=== PATIENT | male | born 1930 | race Caucasian/White ===

== ENCOUNTER 2016-06-22 08:58 | Emergency (ER) | payer OTHER ==
[2016-06-22] MEDS ORDERED: SILVER NITRATE APPLICATOR ONE (09:03)
[2016-06-22 09:06] VITALS: BP 120/71
--- NOTE | 2016-06-22 09:26 | PROVIDER DOCUMENTATION ---
HPI-Rash/Wound/ReCheck - General Source: patient - History of Present Illness-Dermatology Location: reports: lower extremity (L inner foot) Quality: reports: none Severity: reports: mild Onset/Duration: reports: just prior to arrival Timing: reports: still present Context/Associated Symptoms: reports: other (busted blood vessel). denies: insect bite/sting, tick bite, spider bite, unknown bite/sting, abscess, laceration, abrasion, bruising/hematoma, incised wound, stab wound, burn, blisters, change in skin texture, edema, fever, flushing, headache, hives, jaundice, lesion, malaise, nasal congestion, numbness, pallor, paresthesia, petechiae, rash, sore throat, swelling/mass/lumps, tingling, tender area Identifiable cause?: No Exposure: reports: unknown cause Locality of Occurance: Home Similar Symptoms Previously?: No Recently seen or treated by another doctor?: No <Gladys Gabriel - Last Filed: 06/22/16 09:21> <Loc Ohara - Last Filed: 06/22/16 12:05> - General Chief Complaint: Laceration[s] Stated Complaint: bleeding Time Seen by Provider: 06/22/16 09:16 Allergies/Adverse Reactions: Allergies Allergy/AdvReac Type Severity Reaction Status Date / Time Sulfa (Sulfonamide Allergy RASH Verified 05/11/13 16:19 Antibiotics) Home Medications: Home Medication List Medication Instructions Recorded Confirmed Last Taken Type Carvedilol [Coreg] 3.125 mg PO BID 05/11/13 05/11/13 05/11/13 07:00 History Furosemide [Lasix] 40 mg PO DAILY 05/11/13 05/11/13 05/11/13 07:00 History Glimepiride 0.5 mg PO DAILY 05/11/13 05/11/13 05/11/13 07:00 History Potassium Chloride [Klor-Con M10] 20 meq PO DAILY 05/11/13 05/11/13 05/11/13 07: 00 History SIMVAstatin [Zocor] 40 mg PO QHS 05/11/13 05/11/13 05/10/13 20:00 History Magnesium Oxide [Magnesium] 250 mg PO DAILY 05/12/13 05/12/13 Unknown History Omeprazole [Prilosec] 40 mg PO DAILY@0700 #0 capsule 05/12/13 Unknown Rx Spironolactone 25 mg PO DAILY 05/12/13 05/12/13 Unknown History Warfarin [Coumadin] 5 mg PO QHS #0 05/12/13 05/11/13 05/10/14 20:00 Rx - History of Present Illness-Dermatology Nature of Presenting Problem: Pt is 85 y/o M presents to the ED via EMS with wound to L inner foot. Pt states was in the shower and his foot started bleeding. Pt denies injury or trauma. Pt states he is on blood thinners. (Gladys Gabriel) Review of Systems - Adult - REVIEW OF SYSTEMS - ADULT Constitutional: denies: chills, fever Eyes: denies: blurred vision, double vision Ears, Nose, Mouth & Throat: denies: ear pain, nose pain, throat pain Cardiovascular: denies: chest pain, heart murmur, irregular heart rate Respiratory: denies: cough, shortness of breath, wheezing Gastrointestinal: denies: abdominal pain, diarrhea, nausea, vomiting Genitourinary: denies: dysuria, hematuria Musculoskeletal: denies: bone pain, joint pain, neck pain Integumentary: reports: other (busted blood vessel). denies: hives, itching Neurological: denies: dizziness/vertigo, headache/migraines Psychiatric: reports: no symptoms reported Endocrine: reports: no symptoms reported Hematologic/Lymphatic: reports: no symptoms reported Allergic/Immunologic: reports: no symptoms reported All Other Systems: Reviewed and Negative <Gladys Gabriel - Last Filed: 06/22/16 09:21> Past History - Adult - PAST MEDICAL HISTORY-ADULT Review of Records: reports: Nursing Assessment Review, Medications Reviewed, Social history reviewed & non-contributory. Major Childhood Illnesses: reports: denies history Cardiovascular: reports: CHF, HTN Respiratory: reports: denies history Gastrointestinal: reports: denies history Obstetrical/Gynecological: reports: denies history Genitourinary: reports: kidney disease Musculoskeletal: reports: denies history Neurological: reports: denies history Endocrine/Immune: reports: Diabetes Other Conditions: reports: denies history - PRIOR SURGERIES/PROCEDURES Surgical/Procedure History: reports: pacemaker, hernia repair, joint replacement - IMMUNIZATION STATUS Childhood Immunizations: See Nurse Assessment Flu Vaccine: See Nurse Assessment - FAMILY HISTORY Family History: reviewed, not pertinent - SOCIAL HISTORY Smoking: denies Substance Use: denies Living Situation: family <Gladys Gabriel - Last Filed: 06/22/16 09:21> Physical Exam-General - PHYSICAL EXAM-ADULT Initial Vital Signs Reviewed: Yes - CONSTITUTIONAL General Appearance: appears well, alert, no apparent distress - EYES Eyes: PERRL/EOMI, pink conjunctivae, fundi clear, no AV nicking - HEAD, EARS, NOSE, MOUTH & THROAT HENMT: normocephalic/atraumatic, moist mucous membranes, normal ENT inspection, TMs normal, pharynx normal - NECK Neck: non-tender, full range of motion, supple, normal inspection - RESPIRATORY Respiratory: chest non-tender, lungs clear, normal breath sounds, no pleuratic chest pain, no respiratory distress, no accessory muscle use - CARDIOVASCULAR Cardiovascular: normal peripheral pulses, regular rate, rhythm, no edema, no gallop, no JVD, no murmur - GASTROINTESTINAL (ABDOMEN) Abdominal Exam: normal bowel sounds, non tender, soft, no organomegaly, no pulsatile mass - LYMPHATIC Lymphatic: no adenopathy - MUSCULOSKELETAL Back Exam: normal inspection, no CVA tenderness, no vertebral tenderness Extremity: normal range of motion, non-tender, normal gait, normal inspection, no pedal edema, no calf tenderness, normal capillary refill - SKIN Integumentary: normal color, normal turgor, warm/dry, other (busted blood vessel to L inner foot) - NEUROLOGIC Neurologic: grossly normal - PSYCHIATRIC Psych/Mental Status: normal mood/affect, oriented x 3 <Gladys Gabriel - Last Filed: 06/22/16 09:21> Progress <Gladys Gabriel - Last Filed: 06/22/16 09:21> <Loc Ohara - Last Filed: 06/22/16 12:05> - PLAN OF CARE/RESULTS Progress/Plan/Lab Results: Orders Category Date Time Status Silver Nitrate Applicator Med 06/22/16 09:03 Discontinued 1 each .ROUTE .STK-MED ONE Vital Signs - 24 hr 06/22/16 08:59 Pulse Rate 80 Respiratory 20 Rate Blood Pressure 120/71 O2 Sat by Pulse 90 L Oximetry (Gladys Gabriel) Departure <Gladys Gabriel - Last Filed: 06/22/16 09:21> - Departure Time of Disposition Order: 11:59 Certified Medical Emergency: Emergent <Loc Ohara - Last Filed: 06/22/16 12:05> - Departure DIAGNOSIS: 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 <Gladys Gabriel - Last Filed: 06/22/16 09:21> Physician Attestation
== END 2016-06-22 12:30 | disposition home or self-care (01) ==
LOC: P.ED 08:58
DX: I83.92 Asymptomatic varicose veins of left lower extremity (principal); I50.9 Heart failure, unspecified; I10 Essential (primary) hypertension; E11.9 Type 2 diabetes mellitus without complications; Z79.01 Long term (current) use of anticoagulants; Z79.899 Other long term (current) drug therapy; Z95.0 Presence of cardiac pacemaker; Z96.60 Presence of unspecified orthopedic joint implant
CPT/HCPCS: 99282

== ENCOUNTER 2016-11-03 19:02 | Inpatient (IN) ==
[2016-11-03 19:54] LABS: MANUAL DIFF NEEDED? NO
[2016-11-03 19:57] LABS: BASO% 0.3 % (0.0-0.8); EOS% 2.7 % (0.0-10.0); HEMATOCRIT 31.5 % (42.0-52.0); HEMOGLOBIN 10.1 g/dL (14.0-18.0); LYMPH# 1.13 X1000 (1.2-3.4); LYMPH% 15.1 % (20.5-51.1); MCH 31.5 PG (27-31); MCHC 32.1 g/dL (33-37); MCV 98.1 FL (81-99); MONO# 0.88 X1000 (0.11-0.59); MONO% 11.8 % (1.7-9.3); MPV 11.9 FL (7.4-10.4); NEUT% 70.1 % (42.2-75.2); PLT 120 X1000 (130-400); RBC 3.21 XMIL (4.7-6.1)
[2016-11-03 20:23] LABS: ALBUMIN 4.2 g/dL (3.5-5.0); CALCIUM 9.8 mg/dL (8.8-10.2); POTASSIUM 4.2 mmol/L (3.5-5.1); TOTAL BILIRUBIN 0.61 mg/dL (0.20-1.00); TOTAL PROTEIN 7.7 g/dL (6.3-8.3)
--- NOTE | 2016-11-03 21:23 | Diag Imaging Result Doc PS360 ---
CHEST-PORTABLE - 11/03/2016 INDICATION: chf TECHNIQUE: COMPARISON: 04/22/2016 FINDINGS: Stable left-sided pacemaker. There is cardiomegaly. Stable moderate right basilar pleural effusion with adjacent atelectasis. Pulmonary vascularity is somewhat distended. No other infiltrates or edema. IMPRESSION: 1. Cardiomegaly with pulmonary vascular congestion. 2. Moderate right basilar pleural effusion with adjacent atelectasis. Electronically signed by Jayme Lynch 11/03/2016 9:21 PM
[2016-11-03] MEDS ORDERED: LASIX IV ONE (21:24)
[2016-11-03 23:46] LABS: RETIC% 1.86 % (0.8-2.1); RETIC-HE 32.5 PG (28.2-36.6)
[2016-11-04] MEDS ORDERED: HUMALOG SUBQ ONE (01:42)
[2016-11-04] MEDS ORDERED: TYLENOL PO PRN (01:42)
[2016-11-04] MEDS ORDERED: ZOFRAN IV PRN (01:42)
[2016-11-04] MEDS: NITROGLYCERIN TOP SCH ×3 (02:24→16:50)
[2016-11-04] MEDS: LASIX 100 MG in NS 90 ML IV SCH (02:24)
[2016-11-04 03:14] LABS: CALCIUM 9.5 mg/dL (8.8-10.2)
--- NOTE | 2016-11-04 06:48 | EKG Report ---
Test Performed on : 11/04/2016 06:04:57 AM Test Reason : CHF Exacerbation Blood Pressure : / mmHG Vent. Rate : 062 BPM Atrial Rate : 267 BPM P-R Int : 000 ms QRS Dur : 180 ms QT Int : 514 ms P-R-T Axes : 000 -81 101 degrees QTc Int : 521 ms Ventricular-paced rhythm Abnormal ECG When compared with ECG of 11-MAY-2013 22:53, Vent. rate has increased BY 2 BPM Confirmed by Hever Rosas DO ([id number]) on 11/04/2016 6:28:52 PM
[2016-11-04] MEDS: PRILOSEC PO SCH (06:57)
[2016-11-04 07:36] LABS: INR 1.17; PROTIME 12.4 Seconds (9.2-11.7); PTT 26.9 Seconds (22.0-36.0)
--- NOTE | 2016-11-04 08:32 | HISTORY AND PHYSICAL ---
PRIMARY CARE PROVIDER: Dr. Bernabe Martinez. ANTENNA MACHINE OPERATOR: Dr. Lemons, as well as a vessel captain at [facility]. CHIEF COMPLAINT: Shortness of breath and increased edema. HISTORY OF PRESENT ILLNESS: Mr. Saleem is a pleasant, 86-year-old, male with a past medical history of pulmonary hypertension with moderate mitral regurgitation, atrial fibrillation, and diabetes mellitus. [facility] and states that in 2016, he underwent a mitral valve repair. He states that ever since the surgery, he has had increased problems with edema in his legs, which often times extends up to his upper thighs and into his abdomen. He also reports shortness of breath for quite some time, though since his recent surgery he reports this has slightly improved. He does report that since his procedure he has noticed that he is using an increased number of pillows at night to sleep. He also complains of productive cough that is thick and white. Recently, he also complains of some right upper quadrant pain. He denies any chest pain. He also denies any dizziness or lightheadedness. He denies headache, nausea, vomiting, diarrhea, or constipation. He denies any hematochezia or melena. He denies any dysuria or changes in urination. He does report some swelling in his bilateral legs and some occasional cramps. Upon evaluation in the ER, the patient was found to be in CHF exacerbation. He was given 80 mg of Lasix IV. At this time, we will admit the patient for further treatment and evaluation of his congestive heart failure. REVIEW OF SYSTEMS: A 12-point review of systems was conducted with the patient , and all were negative, except for pertinent positives mentioned above in HPI. PAST MEDICAL HISTORY: 1. Severe pulmonary hypertension. 2. Moderate mitral regurgitation. 3. Atrial fibrillation, currently on Eliquis. 4. Pacemaker placement. 5. Diabetes mellitus type 2. 6. Gastroesophageal reflux disease. PAST SURGICAL HISTORY: 1. Total right hip arthroplasty in 2008. 2. Pacemaker placement. 3. Mitral valve repair in 09/2016. 4. Bilateral inguinal hernia surgery. 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 He currently lives at home with his . He is a former smoker. He did smoke 1 pack of cigarettes a day for 20 years, though stopped smoking in 1973. He denies any alcohol or illicit drug use. FAMILY HISTORY: His mother at age 76 secondary to complications from end-stage COPD. She also had a history of diabetes mellitus. His father secondary to complications from acute myocardial infarction at age 72. ALLERGIES: The patient reports allergies to sulfa. HOME MEDICATIONS: 1. Coreg 6.25 mg p.o. b.i.d. 2. Aldactone 25 mg p.o. daily. 3. Potassium chloride 20 mEq p.o. daily. 4. Omeprazole 40 mg p.o. daily. 5. Glimepiride 0.5 mg p.o. daily. 6. Lasix 40 mg p.o. daily. 7. Eliquis 2.5 mg. We are trying to confirm whether or not the patient is taking this once daily or twice a day. 8. Torsemide 20 mg p.o. daily. IMAGING AND LABORATORY DATA: White blood cell count 7.46, hemoglobin 10.1, hematocrit 31.5, MCV is 98.1, platelet count is 120. D-dimer is 1.63. Sodium 141, potassium 4.2, chloride 98, bicarbonate 29, BUN is 51, creatinine is 2.5. GFR is 24. Glucose 149, calcium 9.8. Liver function tests were within normal limits. CK is 75. Troponin is 0.057. EKG showed a ventricular paced rhythm at a rate of 62 with a QTc of 521. Chest x-ray showed cardiomegaly with pulmonary vascular congestion. There is a moderate right basilar pleural effusion with adjacent atelectasis as well. PHYSICAL EXAMINATION: VITAL SIGNS: Temperature is 97.6, heart rate 79, blood pressure 102/67, oxygen saturation is 98% on room air. GENERAL: Mr. Saleem is a very pleasant, 86 year male who is resting comfortably in an inpatient bed. He is in no acute distress. He was awake, alert, and able to answer all questions appropriately. HEENT: Head is atraumatic, normocephalic. Pupils are equal, round, reactive to light, 3 mm bilaterally and brisk. Oral mucosa is moist. Oropharynx is clear. NECK: Supple. Trachea midline. No carotid bruit noted on the left, though the patient does have a bruit noted to the right upon auscultation, though he does have a heart murmur. This could be related to this. He does have JVD present upon examination. CARDIOVASCULAR: The patient has S1, S2 present. He does have a 3/6 murmur noted. He does have a regular rate and rhythm. PULMONARY: The patient has symmetrical chest expansion bilaterally. Lungs sounds were clear to auscultation in all sampson, except for there were some fine crackles noted in the left lower base. ABDOMEN: Soft. It does appear to be slightly distended. He did report some slight tenderness in the right upper quadrant. Bowel sounds are present in all 4 quadrants and were normoactive. EXTREMITIES: The patient does have 2+ pitting edema noted from bilateral knees down. He also has some discoloration noted to bilateral lower extremities as well, which is likely consistent with peripheral vascular disease. INTEGUMENTARY: The patient's skin is pink, warm, dry, and intact. No lesions or sores noted. NEUROLOGIC: The patient is alert and oriented to person, place, time, and situation. Cranial nerves II through XII are grossly intact. ASSESSMENT AND PLAN: 1. Congestive heart failure exacerbation. He was given an initial dose of 80 of Lasix in the emergency room. We will continue him on a Lasix drip. We have also continued his Aldactone. We have added metolazone, and will continue his Coreg as well. The patient has had a recent echocardiogram performed in 04/2016, which showed ejection fraction of 40% to 50%. We have placed a consult with Cardiology with Dr. Lemons, and will await his evaluation and further recommendations. We will also do a series of cardiac enzymes as well. 2. History of atrial fibrillation, currently on Eliquis. We will continue this as well. The patient, at this time, does have a paced rhythm at a rate of 62. 3. Chronic kidney disease. This is probable stage IV. We have placed nephrology consult with Dr. Canseco and will await his evaluation and recommendations. 4. Diabetes mellitus type 2. The patient normally takes glimepiride, though at this time, we will hold this and place him on a sliding scale lispro insulin per low-dose protocol. 5. Normocytic anemia. We have placed an anemia profile. Will await those results, and continue to follow. 6. Deep vein thrombosis prophylaxis is currently being provided with above- mentioned Eliquis. 7. Gastroesophageal reflux disease. We will continue the patient's omeprazole. The patient will be placed on CIC with telemetry. He will have vital signs every 4 hours. We will do strict intake and output. He will be on a diabetic diet. Further orders and recommendations pending hospital course, diagnostic studies, and physician evaluation. Dictated by SOBIA Veloz for Terri Cisneros MD Seen and examined pt discussed case with [facility] THERAPIST cc: MD Bernabe Larkin MD [facility]ITALRuddy
[2016-11-04] MEDS ORDERED: ELIQUIS PO SCH (09:00)
[2016-11-04] MEDS: ALDACTONE PO SCH (09:10)
[2016-11-04] MEDS: ZAROXOLYN PO SCH (09:10)
[2016-11-04] MEDS: KLOR-CON PO SCH (09:10)
[2016-11-04] MEDS: COREG PO SCH ×2 (09:10→20:37)
--- NOTE | 2016-11-04 10:37 | Diag Imaging Result Doc PS360 ---
US RENAL 2 (RETROPER) COMPLETE - 11/04/2016 INDICATION: decreased renal function TECHNIQUE: COMPARISON: None FINDINGS: The kidneys are normal in size. There is background hyperechogenicity of the renal parenchyma indicating chronic medical renal disease. The kidneys are also multicystic. There are at least three cysts in each kidney. These measure up to 3.6 cm bilaterally. No hydronephrosis or mass. The right kidney measures 11.2 x 5.3 x 4.6 cm. The left kidney measures 12.1 x 4.8 x 5.5 cm. Cortex measures 13 mm bilaterally. The urinary bladder is grossly normal. There is trace perihepatic free fluid noted. IMPRESSION: 1. Hyper echogenic kidneys consistent with chronic medical renal disease. 2. Multicystic kidneys. 3. Trace ascites. Electronically signed by Jayme Lynch 11/04/2016 10:35 AM
--- NOTE | 2016-11-04 10:42 | Diag Imaging Result Doc PS360 ---
CHEST-2 VIEWS - 11/04/2016 INDICATION: Chest Pain TECHNIQUE: COMPARISON: 11/03/2016 FINDINGS: Stable left-sided pacemaker. Stable mild cardiomegaly and pulmonary vascular congestion. Stable moderate right basilar pleural effusion with adjacent atelectasis. Stable trace left effusion. IMPRESSION: No change from prior. Electronically signed by Jayme Lynch 11/04/2016 10:40 AM
--- NOTE | 2016-11-04 11:42 | CONSULTATION ---
DATE OF CONSULTATION: 11/04/2016 INDICATION FOR CONSULTATION: Congestive heart failure, mitral regurgitation. HISTORY OF PRESENT ILLNESS: Mr. Saleem is a very pleasant, 86-year-old white male with a history of severe pulmonary hypertension secondary to severe mitral regurgitation status post mitral clip x2 in September 2016. He apparently reports followup in [place] at the end of September. At which time, he had his diuretics adjusted from Lasix 80 mg once a day to Demadex 40 mg in the morning, to take 40 mg in the p.m. for increased weight or swelling. He reports increased lower extremity edema since that time period and more specifically he has noted wheezing edema in his left lower extremity over the last couple of days or so. He contacted our office yesterday as Dr. Lemons is his primary information operator and was instructed to go to the ER. He denies any overt orthopnea or chest pain. No syncope and he has had no episodic heart racing. PAST MEDICAL HISTORY: 1. Significant for severe pulmonary hypertension diagnosed on right heart catheterization. At that time his transpulmonary gradient was 12 wood units with a PA pressure of 81/35 and a mean of 52. 2. Severe mitral regurgitation. Treated with mitral clip. This was performed on September 09, 2016. He had 2 clips placed, 1 bridging the A2 P2 position and the other bridging the A3 P3 position. The post mitral valve mean gradient was 4 mmHg at that point and 3D imaging demonstrated 3 separate orifices. 3. Atrial fibrillation, maintained on Eliquis. 4. History of permanent pacemaker implantation. 5. Diabetes mellitus. 6. Gastroesophageal reflux disease. 7. History of cardiac catheterization in August 2016 demonstrating [id number] nonobstructive coronary disease. SOCIAL HISTORY: . His is present in the room. They both seem well versed in his medical care. 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 Former smoker; quit in 1973. FAMILY HISTORY: Mother at 76 due to complications from COPD. Father secondary to complications of a myocardial infarction at age 72. REVIEW OF SYSTEMS: A 10 system review of systems is negative except for those things mentioned in the HPI. PHYSICAL EXAMINATION: Shows he has been afebrile. Heart rate is afebrile. Blood pressure most recently is 108/62. On presentation his blood pressure was 120/70. Thus far his I's and O's have been -1 L. He has very little input recorded though.General: He is in no acute distress, pleasant. HEENT: Oropharynx is moist. Poor dentition. Eye examination shows pink conjunctivae, white sclerae. Neck: Examination shows no obvious thyromegaly or thyroid tenderness. Cardiovascular: He is in a regular rate and rhythm. He has a slight 2/6 systolic murmur. He has no S3. His JVP does appear to be elevated to around the angle of the jaw in an upright position. He has lower extremity edema noted around 2[address] lutz. His extremities are warm. It is more prominent on the left than the right. No weeping was noted. Chest exam: Relatively clear. He did have some mild decrease in his extreme right base. No increased work of breathing. Abdomen: Soft, nontender, nondistended. He has no obvious organomegaly. Skin Exam: Warm and dry throughout without any rashes. Neurological: He is moving all extremities well. Cranial nerves 2 through 12 are intact without any sensation deficits. Psychiatric: Alert and oriented, pleasant. Normal mood and affect. PERTINENT DATA: His chest x-ray demonstrated cardiomegaly with suggestion of pulmonary vascular congestion and a moderate right-sided pleural effusion. CT scan on October 28 in addition demonstrated moderate right-sided pleural effusion. Electrocardiogram early this morning demonstrated what appears to be an atrial rhythm of atrial fibrillation with ventricular paced complexes at a rate of 62 beats per minute. His laboratory data shows a white count of 7.4, hematocrit 31, platelet count 120,000. His INR is 1.17. His D-dimer yesterday was 1.6. His sodium is 144, potassium is 4, BUN 48, creatinine 2.4. On presentation his BUN and creatinine were 51 and 2.5 and on October 13 they were 41 and 2.2 respectively. His cardiac enzymes including his troponin were checked and they have been negative. ASSESSMENT: 1. Congestive heart failure, likely valvular in etiology. 2. Renal dysfunction. Unsure of the chronicity as he does appear to have creatinines in the low 2s at the beginning of October. It does seem to be somewhat worsened today. 3. Severe pulmonary hypertension. PLAN: I would agree with continued diuresis. Currently he is on a Lasix drip at 4 mg an hour along with metolazone 2.5 daily. We will follow up on the echo findings and likely consider possible increases in afterload reduction. He may not be a candidate for an QUIRINO or an ARB so we may need to use hydralazine and consider possibly decreasing his Aldactone. He seemed to be more successful on diuretics with Lasix so we will likely convert him back over to Lasix as an outpatient instead of Demadex. We are obtaining a left lower extremity venous Doppler due to his asymmetric edema. He is on Apixaban 2.5 b.i.d. which seems appropriately dosed based on his age and kidney function. cc: MD Bernabe Olsen MD
[2016-11-04 11:56] LABS: URINE MICRO REVIEW NEEDED? NO; URINE SOURCE VOIDED
[2016-11-04 12:08] LABS: BILIRUBIN URINE NEGATIVE (NEGATIVE); BLOOD URINE NEGATIVE (NEGATIVE); COLOR YELLOW; GLUCOSE URINE NEGATIVE (NEGATIVE); LEUKOCYTES URINE NEGATIVE (NEGATIVE); NITRITE URINE NEGATIVE (NEGATIVE); PROTEIN URINE NEGATIVE (NEGATIVE); SP GRAVITY URINE 1.006; TURBIDITY URINE CLEAR (CLEAR); UR EPITHELIAL CELLS <10 /HPF (<10); URINE BACTERIA NEGATIVE /HPF; URINE RBC <10 /HPF (<10); URINE WBC <10 /HPF (<10); UROBILINOGEN URINE NORMAL (NORMAL)
--- NOTE | 2016-11-04 13:35 | CONSULTATION ---
DATE OF CONSULTATION: 11/04/2016 REASON FOR ADMISSION: Lower extremity edema, shortness of breath, CHF exacerbation. REASON FOR CONSULTATION: Acute on chronic kidney disease. Assist with management. CONSULTING PHYSICIAN: Dr. Martinez. HISTORY OF PRESENT ILLNESS: This is an 86-year-old gentleman with a past medical history of pulmonary hypertension, atrial fibrillation, diabetes and known chronic kidney disease who was actually scheduled to come into our office today for a new patient visit for his chronic kidney disease. The patient states that he went to the emergency room on day of admission secondary to worsening swelling into his legs and shortness of breath. He states that in September of this year he had a mitral valve repair and that his breathing has been better, but he has continued to have lower extremity edema. He has had a worsening cough with some productive sputum. It is white in color. In the emergency room he was found to be in CHF exacerbation. His creatinine was 2.5 on admission. He was given IV Lasix and placed on a Lasix drip and admitted to the hospital for further workup and treatment. This morning, his creatinine remains stable at 2.4. Urine output is slowly picking up. Patient is no longer having shortness of breath and states that his swelling has mildly improved from last night. He continues to have weeping edema to the lower extremities. Patient states that his urine output has not changed, that the color and consistency are the same. He states he has had no foamy urine. No change in bowel or bladder habits. He has had no dizziness, no headache, no overt chest pain. Just some shortness of breath and worsening edema. PAST MEDICAL HISTORY: 1. Severe pulmonary hypertension. 2. Moderate mitral valve regurgitation with repair. 3. Atrial fibrillation. He is on Eliquis. 4. Pacemaker placement. 5. Diabetes type 2. 6. GERD. 7. Chronic kidney disease stage 3 with a previous baseline creatinine of 1.6, and then in 2013 and 2017 after his mitral valve replacement surgery, his creatinine baseline was 2.1. PAST SURGICAL HISTORY: Right hip arthroplasty pacemaker. MVP this year. Bilateral inguinal hernia surgery. ALLERGIES: Sulfa medication. HOME MEDICATIONS: 1. Coreg. 2. Aldactone. 3. KCl. 4. Omeprazole. 5. Glyburide. 6. Lasix. 7. Eliquis. 8. Torsemide. FAMILY HISTORY: Mother with COPD and diabetes. Father with SD. SOCIAL HISTORY: He is retired. He is . He has attentive family in the room with him today. He stopped smoking in 1973 and no ETOH or illicit drug use. REVIEW OF SYSTEMS: With pertinent positives noted above in the HPI. PHYSICAL EXAMINATION: Vital Signs: Temperature 97.6 degrees, pulse 79, respiratory 23, blood pressure 111/63 intake not been measured. Output 525 mL since admission. He has had at least 300 mL in a urinal at the bedside. General: This is an elderly gentleman sitting up in bed. He is awake and alert. Able to give an appropriate history. He is currently on room air. HEENT: Normocephalic atraumatic. NINA, conjunctivae pink. Oral mucosa moist. Neck: Supple. Trachea midline. Positive JVD noted in a reclined position. Cardiovascular: He has a regular rate and rhythm with a systolic murmur noted. Pulmonary: He has equal excursion and is clear this morning. He has no increased work of breathing and again remains on room air. Abdomen: Soft with mild distention. Denies current tenderness. Positive bowel sounds. : Not inspected. He is voiding without difficulty. He has a light pale clear yellow urine noted in the urinal. Extremities: 2+ pretibial edema with dependent edema to the thighs as well. This is weeping. He has peripheral vascular disease discoloration noted bilateral lower extremities. He is moving all extremities without difficulty. Integumentary: Skin is warm and dry otherwise without or lesion or rashes. Neurologic: Grossly nonfocal. LAB DATA: WBC of 7.4, hemoglobin 10.1, hematocrit 31.5, platelet count 120,000 , sodium 144, potassium 4.0 chloride 100, CO2 31, BUN 48, creatinine 2.4. Calcium 9.5, alkaline phosphatase 70. His chest x-ray indicated cardiomegaly with pulmonary vascular congestion and right basilar pleural effusion with atelectasis. ASSESSMENT AND PLAN: 1. Acute on chronic kidney disease secondary to his fluid volume overload. His creatinine is actually not too far from his established baseline in the last couple months of 2.1. The patient's creatinine went below 2 since his surgery in September. We will go ahead and order renal ultrasound today and do urine studies to evaluate additional causes of his acute kidney injury. Of note, the patient is on Lasix drip and likely as long as he is requiring this, his creatinine will likely stay at this level. Anticipate rise in the BUN. 2. Congestive heart failure exacerbation followed by primary. He is continued on a Lasix drip. Followed by Cardiology with Dr. Lemons. 3. History of atrial fibrillation on Eliquis. Currently, he has paced rhythm. 4. Electrolytes, acid-base balance. These are acceptable. 5. Anemia. Currently acceptable. We will go ahead and order iron studies if this has not already been done. 6. Fluid volume. See #1 for plan. 7. Hypertension controlled. Thank you for the consult. Seen, data reviewed, discussed with Violeta Denis on 11/04/16. I agree with the above assessment and plan of care. rg Dictated by SOBIA Auguste for Kwesi Canseco MD cc: MD Bernabe Kelley MD [facility]
[2016-11-04 13:42] LABS: UR CREAT RANDOM 23.4 mg/dL (14-26); UR PROT RANDOM < 4.0 mg/dL; UR SODIUM 117 mmoll
--- NOTE | 2016-11-04 14:24 | ECHO REPORT ---
ORDER DATE: 11/04/2016 INTERPRETING PHYSICIAN: Dr. Wesley Fung ECHOCARDIOGRAPHIC MEASUREMENTS: Interventricular septum: 1.0 cm. Left ventricular posterior wall: 0.8 cm. Diastolic diameter: 4.7 cm. Left atrium: 3.5 cm. Aortic root: 3.2 cm. SUMMARY OF THE 2-DIMENSIONAL IMAGING: Three is biatrial enlargement. Normal left ventricular cavity size. Estimated ejection fraction of 40 %. There is global hypokinesis. Patient is status post mitral valve repair. There is restriction of mitral valve movement with peak inflow velocity of 1.6 m/sec with a mitral valve area by pressure half time of 2. There is mild mitral stenosis or restriction of the movement of the mitral valve leaflet associated with moderate mitral regurgitation. There is moderate tricuspid regurgitation. Peak velocity across the tricuspid valve was 3.5 m/sec. Pulmonary artery systolic pressure of 60 mmHg. There is a no aortic stenosis. There is aortic sclerosis associated with mild aortic regurgitation. There is no pericardial effusion or obvious intracardiac mass or thrombus. cc: MD Edilia Cortez PA Timothy P. Weirich, MD
[2016-11-04] MEDS: DUONEB (A & A) INH PRN (15:45)
--- NOTE | 2016-11-04 16:35 | PROGRESS NOTE ---
DATE: 11/04/2016 SUBJECTIVE: The patient states he is breathing a little bit better. I reviewed all of his lab studies, x-ray studies and the notes left by the overnight team, as well as consult notes. I was given an oral report that his Doppler study of his leg was negative for DVT, but I do not have written confirmation of that. I reviewed the history with the patient in its entirety and agree with the present treatment plan. OBJECTIVE: Vital signs: At time of my dictation, temperature 97.6, heart rate sixty, respiratory rate 18, blood pressure 03/54, 98% saturated on room air. Neck: There is no JVD. Lungs: Show faint crackles in both bases. There are decreased breath sounds in the right side inferiorly consistent with a small pleural effusion. Extremities: Show bilateral severe venous stasis change on the skin. The left leg has pitting edema, which is out of proportion to the right leg. LABORATORY: Reviewed. ASSESSMENT AND PLAN: 1. The patient's valvular disease with congestive failure is confirmed by Doppler echo today. He has EF of 40% with global reduction in overall heart movement. I agree with the present plan, but we are going to need to watch his creatinine very closely as he is rapidly approaching end- stage renal situation, even though his creatinine is not that high relative to most renal patient's, compared to his baseline given his overall size and his age, I think this portends a greater degree of renal dysfunction than the numbers would indicate. 2. Reviewed recommendations of Nephrology consult and present workup. 3. Diabetes. Patient was not started back on his Amaryl today and his blood sugar spiked up into the 270s. We will continue to monitor this and we will restart his Amaryl shortly. cc: MD JN Bradley
[2016-11-04] MEDS: ELIQUIS PO SCH (20:37)
[2016-11-05] MEDS: LASIX 100 MG in NS 90 ML IV SCH (01:48)
--- NOTE | 2016-11-05 06:11 | Extremity Venous Study ---
PROCEDURE NAME: Venous U/S Left Leg - 11/04/2016 REQUESTING PHYSICIAN: Dr. Chilo Rosas. INDUSTRIAL REHABILITATION CONSULTANT: Frantz. INDICATIONS: Edema of the left lower extremity. PROCEDURE: Left lower extremity venous duplex and color flow imaging. EQUIPMENT: [employer] Labsid E9 Ultrasound System with a 9 LD transducer. FINDINGS: Images of the left lower extremity venous systems were obtained with a comparison shot to the right common femoral vein in both sagittal and transverse planes. Doppler was used to evaluate veins for spontaneity, phasicity, respiratory excursion, and digital augmentation. RESULTS: There appears to be some pulsatile waveforms noted on the left side and to the right common femoral vein. There is no obvious superficial or deep venous thrombosis noted in the left lower extremity. There is a fluid collection noted at the popliteal fossa which in the right clinical scenario may represent a Murray's cyst. INTERPRETATION: No obvious superficial or deep venous thrombosis noted in the left lower extremity. There is pulsatility to the waveforms of the venous system of bilateral common femoral veins which may represent a central cardiac issue which I would recommend handling clinically. There is also incidentally noted Murray's cyst on the left side. cc: MD Chilo Garner MD Timothy P. Weirich, MD
[2016-11-05 06:23] LABS: ALBUMIN 3.8 g/dL (3.5-5.0); CALCIUM 9.5 mg/dL (8.8-10.2); POTASSIUM 3.9 mmol/L (3.5-5.1)
[2016-11-05] MEDS: NITROGLYCERIN TOP SCH ×3 (06:33→20:33)
[2016-11-05] MEDS ORDERED: PRILOSEC PO SCH (07:00)
[2016-11-05] MEDS: PRILOSEC PO SCH (07:12)
[2016-11-05] MEDS: COREG PO SCH ×2 (08:21→20:33)
[2016-11-05] MEDS: KLOR-CON PO SCH (08:21)
[2016-11-05] MEDS: ZAROXOLYN PO SCH (08:21)
[2016-11-05] MEDS: AMARYL PO SCH (08:22)
[2016-11-05] MEDS: ELIQUIS PO SCH ×2 (08:23→20:33)
[2016-11-05] MEDS: ALDACTONE PO SCH (08:23)
--- NOTE | 2016-11-05 09:01 | PROGRESS NOTE ---
DATE: 11/05/2016 SUBJECTIVE: The patient states that he is better. He is having no shortness of breath at rest. He has not really made any exertional activity over the course of his hospitalization as of yet. He states he is having a good amount of urine output. He has not been drinking water excessively. We placed ZACHARY hose on him which has reduced the edema in the left leg modestly. He states that it is a little bit uncomfortable, but not overtly painful. OBJECTIVE: Vital Signs: 98.1, 61, 16, 113/59, 95% saturated on room air. Fluid balance: I am not sure that intake and output are listed correctly for 11/04/2016, but as of this morning it appears that he was -369 mL. General: On physical exam, the patient is alert, oriented, conversive and appropriate. Lungs: There are slightly decreased breath sounds with some crackles in the right base consistent with pleural effusion and pulmonary edema. The left lung is clear today as compared to yesterday. Cardiovascular: Irregular with a systolic murmur heard at the apex. It is mild. Extremities: Reduced edema in the left leg with ZACHARY hose on both legs. LABORATORY DATA: Potassium 3.9, BUN 58, creatinine 2.3, blood sugars 164. ASSESSMENT AND PLAN: 1. The patient's congestive heart failure seems to be resolving; in fact, he requested discharge home. I stressed that we need to find the correct dose of Lasix which will keep him out of trouble. Postoperatively from his mitral valve repair, he was put on Demodex 40 mg twice a day. He stated that he did not feel this was working nearly as well as the Lasix for inexplicable reasons. He was also taking spironolactone, but not taking metolazone. I have discontinued the patient's metolazone. Will leave the decision on the Lasix drip and appropriate dosing for the patient to cardiology. We will continue to monitor ins and outs. 2. 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 3. We will continue with ZACHARY hose. 4. The patient's diabetes is reasonably controlled. I have added back his Amaryl and we will continue to monitor blood sugars. cc: Bernabe Martinez MD
[2016-11-05] MEDS: DUONEB (A & A) INH PRN ×2 (11:13→15:16)
--- NOTE | 2016-11-05 15:28 | PROGRESS NOTE ---
DATE: 11/05/2016 TIME SEEN: 08:45 SUBJECTIVE: Patient is sitting up in bed. He states his breathing is much better. He has no pain this morning. The weeping has stopped from his legs. OBJECTIVE: Vital Signs: Temperature 98.5 degrees, pulse 61, respiratory rate 16, blood pressure 115/61. Intake 856 mL, output 1.2 L. His weight is down 2 kg from yesterday. PHYSICAL EXAMINATION: General: This is an elderly gentleman sitting up in bed. He is awake, alert, in no acute distress. HEENT: Normocephalic, atraumatic. Oral mucosa moist. Neck: Supple. No JVD. Cardiovascular: Regular rate and rhythm with a systolic murmur. Pulmonary: He has equal excursion. He has some decreased breath sounds but no overt wheeze. Abdomen: Soft, with positive bowel sounds. : Not inspected. He is voiding. Extremities: Trace pretibial edema. Vascular changes noted in bilateral lower extremities. He does have ZACHARY hose on. Integumentary: Skin is warm and dry otherwise. LAB DATA: Sodium 140, potassium 3.9,, chloride 95, CO2 33, BUN 58, creatinine 2.3. IMAGING: He had a renal ultrasound that indicated kidney size of right kidney 11.2 cm, left kidney 12.1 cm. Kidneys multi cystic, at least 3 cysts per kidney. These measure up to 3.6 cm. ASSESSMENT AND PLAN: 1. Chronic kidney disease. Patient's renal function is really unchanged since admission. We will continue to follow the patient while in the hospital, and once congestive heart failure has resolved and he is off the IV diuretics and he is back to his regular dosing, we would initiated a 24 hour urine at that time. We would follow him up in 2 weeks from discharge. 2. Congestive heart failure. He is improving. He is currently on a Lasix drip. Followed by Cardiology. 3. Electrolytes, acid-base balance. He has some mild alkalosis likely secondary to his chronic kidney disease along with the diuretic use. 4. Blood pressure. Controlled. 5. Fluid volume. Again, he is in negative territory. Seen, data reviewed, discussed with Violeta Denis on 11/05/16. I agree with the above assessment and plan of care. rg Dictated by SOBIA Auguste for Kwesi Canseco MD cc: MD Bernabe Kelley MD [facility]
--- NOTE | 2016-11-05 17:16 | PROGRESS NOTE ---
DATE: 11/05/2016 SUBJECTIVE: Mr. Saleem reports he is feeling much better. PHYSICAL EXAMINATION: Vital signs: Afebrile. His heart rate is in the 60s to 70s. Blood pressure is 101/59. His input and output over the course of the hospitalization are negative around 900 mL or so. General: No acute distress. Cardiovascular: He is in a regular rate and rhythm. He has a soft systolic murmur best heard at the apex. No lower extremity edema. Warm and well perfused lower extremities. Chest: Still has continued mild reduced breath sounds in the right base. No increased work of breathing. Abdomen: Soft, nontender, nondistended. He has no obvious organomegaly. PERTINENT DATA: His sodium is 140, potassium 3.9, BUN 58, creatinine 2.3. ASSESSMENT: 1. Mitral regurgitation, status post mitral clip. 2. Congestive heart failure. PLAN: We will continue on the Lasix drip overnight. I will check a BNP and a chest x-ray in the morning. Likely, we will try to transition him over to oral medications in the morning and potential for discharge tomorrow afternoon. cc: MD Bernabe Olsen MD
[2016-11-06] MEDS: LASIX 100 MG in NS 90 ML IV SCH (00:53)
[2016-11-06 05:43] LABS: CALCIUM 9.8 mg/dL (8.8-10.2)
[2016-11-06] MEDS: NITROGLYCERIN TOP SCH ×2 (05:55→13:50)
[2016-11-06] MEDS: PRILOSEC PO SCH (05:59)
--- NOTE | 2016-11-06 07:37 | Diag Imaging Result Doc PS360 ---
EXAM: CHEST-2 VIEWS HISTORY: chf TECHNIQUE: Two views COMPARISON: 11/04/2016 FINDINGS: There is a small to moderate-sized right-sided pleural effusion. This is similar to the prior exam. There is right basilar atelectasis. The heart remains mildly prominent. The vessels are not distended. The patient has a left-sided pacemaker. There is a granuloma in the upper outer left lung. Trace left pleural fluid. IMPRESSION: Stable chest. Electronically signed by Konrad Gonzalez 11/06/2016 7:35 AM
[2016-11-06] MEDS: ALDACTONE PO SCH (08:18)
[2016-11-06] MEDS: KLOR-CON PO SCH (08:19)
[2016-11-06] MEDS: COREG PO SCH (08:19)
[2016-11-06] MEDS: AMARYL PO SCH (08:19)
[2016-11-06] MEDS: ELIQUIS PO SCH (08:19)
--- NOTE | 2016-11-06 10:32 | PROGRESS NOTE ---
DATE: 11/06/2016 SUBJECTIVE: He is ambulatory in the room without shortness of breath. He still has an IV for Lasix. OBJECTIVE: Vital Signs: Blood pressure 102/59, heart rate 75, respirations 16, afebrile. Intake 900 mL. Output 1 L. PHYSICAL EXAMINATION: No acute distress. Skin is warm and dry. Conjunctivae are pink and moist. Pupils are equal. Neck veins are not distended. Heart is regular without gallops. Lungs have equal breath sounds. No crackles or wheezes. Abdomen: Soft, nontender. Bowel sounds present. Extremities have no edema, clubbing, or cyanosis. LABORATORY DATA: Sodium 138, potassium 4.0, chloride 91, bicarbonate 33. BUN 63, creatinine 2.4. IMPRESSION: 1. Chronic kidney disease, stage 4. Some overlying increase in BUN and creatinine related to diuresis. From my perspective, okay to change house attendant to p.o. and be discharged. We will arrange for outpatient followup in our office. 2. Electrolytes/acid base/anemia, all within target. 3. Hypertension. Blood pressure is low. cc: MD Bernabe Kelley MD
[2016-11-06 11:38] VITALS: BP 103/61
--- NOTE | 2016-11-06 13:29 | PROGRESS NOTE ---
DATE: 11/06/2016 SUBJECTIVE: Mr. Saleem reports he feels better. He is not having any orthopnea. PHYSICAL EXAMINATION: Vital signs: Afebrile. Heart rate is 64, blood pressure 103/61. His I's and O's for the course of the hospitalization are -977 mL, although these do not appear to be accurate as he has very poor intakes and outputs recorded. General: No acute distress. Cardiovascular: He sounds to be in a regular rate and rhythm. No murmurs. No S3. No lower extremity edema. Chest: Clear bilaterally. No increased work of breathing. Abdomen: Soft, nontender. PERTINENT DATA: Sodium is 138, potassium 4, BUN 63, creatinine 2.4, which is roughly [place] [address], which is the initial one we have this hospitalization. ASSESSMENT: Valvular heart disease with pulmonary hypertension. PLAN: Patient seems to be doing much better clinically. His weight is down 5 pounds. In addition, he no longer has any lower extremity edema. I will plan on placing him on Lasix 40 mg p.o. b.i.d. with a chemistry to be checked in 1 week. That would be November 13. He needs to follow up with Dr. Lemons as an outpatient. cc: MD Bernabe Olsen MD
[2016-11-06] MEDS ORDERED: LASIX PO SCH (21:00)
--- NOTE | 2016-11-07 10:13 | DISCHARGE SUMMARY ---
ADMISSION DATE: 11/03/2016 DISCHARGE DATE: 11/06/2016 DISCHARGE DIAGNOSES: 1. Acute on chronic congestive heart failure secondary to valve disease. 2. Status post mitral valve repair. 3. Chronic renal insufficiency stage 3. 4. Pulmonary hypertension. 5. Chronic atrial fibrillation. 6. Status pacemaker. 7. Type 2 diabetes, controlled on oral medication. 8. Gastroesophageal reflux disease. 9. Lower extremity edema. 10.Chronic venous stasis of the lower extremities. HOSPITAL COURSE: This 86-year-old white male had his regurgitant mitral valve clipped approximately 1 month prior to admission. At that time, he was changed off his normal dose of Lasix which had been 80 mg in the morning and 40 in the afternoon and was placed on Demadex 40 mg twice a day. He also continued his spironolactone and was given some potassium. He presented to the emergency room after gradual worsening of his shortness of breath. He felt like his exertional dyspnea had gotten worse. The patient was evaluated and indeed thought to be in acute congestive heart failure. He had lower extremity edema particularly in the left leg but also present in both. He had a pleural effusion on the right. The patient was admitted to the hospital. Cardiology consultation was immediately obtained. They performed an echocardiogram which showed global hypokinesis and a 40% ejection fraction. There was noted a restriction of the mitral valve movement and tricuspid regurgitation. He was started on a Lasix drip, and due to elevations even from his baseline of chronic renal insufficiency, nephrology consultation was also obtained. The patient had a moderate diuresis throughout his hospitalization and lost about 5 or [address] Canseco felt that he had entered stage 4 of his renal failure and was content to follow up on an outpatient basis. The patient's breathing improved, and he was able to move about the room in a reasonable fashion without excessive dyspnea. The patient's left lower extremity edema was evaluated with a venous Doppler and found to have no evidence of clot. He was put into some knee-high ZACHARY hose and had reduction in edema of both legs which seemed to help him. At the time of discharge, the patient still had a small to moderate right pleural effusion, but this improved on clinical exam on x-ray at the time of discharge. He was sent home with spironolactone 25 mg daily, potassium 20 mEq daily, and furosemide 40 mg twice daily. He is aware that he can contact us at any time to make arrangements on followup and on medications. He will be following up with Dr. Canseco and with [facility]. The patient's was present for all discussions, and she was in agreement with our treatment plan. cc: Bernabe Martinez MD
--- NOTE | 2016-11-19 18:29 | PROVIDER DOCUMENTATION ---
This chart was entered by Guillermina Acevedo Scribe, acting as scribe for Tripp Aguilar MD. HPI-Musculoskeletal Pain/Inj - GENERAL Chief Complaint: Edema Stated Complaint: "LT LEG SWELLING, OOZING, SWELLING IN ABD" Time Seen by Provider: 11/03/16 19:48 Source: patient - HX OF PRESENT ILLNESS-MUSKULOSKELTAL Nature of Presenting Problem: 86 Y/O M presents to ED with Edema. Pt states he has a hx of pedal edema and was taking diuretics, pt called [facility] and was told to come to ED to monitor Blood pressure due to increased use of diuretics. Pt Has a hx of CHF and SOB. Quality of Pain: reports: tightness Severity in ED: moderate, severe Onset/Duration: this evening Timing: still present, changing over time, getting worse Any recent injury?: No Locality of Occurance: Home Similar Symptoms Previously?: Yes Recently seen or treated by another doctor?: Yes - LOWER EXTREMITY PAIN/INJURY Lower Extremities Pain: leg: bilateral Context / Method of Injury: reports: other (edema) Associated Symptoms: reports: denies symptoms Review of Systems - Adult - REVIEW OF SYSTEMS - ADULT Constitutional: denies: chills, fever Eyes: reports: no symptoms reported Ears, Nose, Mouth & Throat: reports: no symptoms reported Cardiovascular: reports: edema. denies: chest pain Respiratory: reports: shortness of breath Gastrointestinal: denies: abdominal pain, diarrhea, nausea, vomiting Genitourinary: reports: no symptoms reported Musculoskeletal: reports: muscle aches. denies: bone pain, back pain Integumentary: reports: no symptoms reported Neurological: reports: no symptoms reported Psychiatric: reports: no symptoms reported Endocrine: reports: no symptoms reported Hematologic/Lymphatic: reports: no symptoms reported Allergic/Immunologic: reports: no symptoms reported All Other Systems: Reviewed and Negative Past History - Adult - PAST MEDICAL HISTORY-ADULT Review of Records: reports: Old Records Reviewed, Nursing Assessment Review, Medications Reviewed, Social history reviewed & non-contributory. Major Childhood Illnesses: reports: denies history Cardiovascular: reports: CHF, HTN Respiratory: reports: denies history Gastrointestinal: reports: denies history Obstetrical/Gynecological: reports: denies history Genitourinary: reports: kidney disease Musculoskeletal: reports: denies history Neurological: reports: denies history Endocrine/Immune: reports: Diabetes Other Conditions: reports: denies history - PRIOR SURGERIES/PROCEDURES Surgical/Procedure History: reports: pacemaker, hernia repair, joint replacement - IMMUNIZATION STATUS Childhood Immunizations: See Nurse Assessment Flu Vaccine: See Nurse Assessment - FAMILY HISTORY Family History: reviewed, not pertinent - SOCIAL HISTORY Smoking: non-smoker Substance Use: none/never Alcohol Use Frequency: never Living Situation: family Physical Exam-Injury Related - Physical Exam-Injury Related General Appearance: alert, no apparent distress Eyes: pink conjunctivae, anisocoria Head, Ears, Nose, Mouth & Throat: moist mucous membranes, normal ENT inspection , TMs normal Neck: full range of motion, supple, lymphadenopathy (bulging) Respiratory: other (, rt plural effusion with egophony changes) Cardiovascular: regular rate, rhythm, other (3/6 mitral insufficent murmur) Abdominal Exam: other (bulging flanks, liver enlarged) Back Exam: no CVA tenderness Extremity: other (bilateral dermastasis) Integumentary: normal color, warm/dry Neurologic: grossly normal, no motor/sensory deficits Psych/Mental Status: normal mood/affect, normal thought content, normal thought process, oriented x 3 - Glascow Coma Score Best Eye Response (Ennis): (4) open spontaneously Best Verbal Response (Ennis): (5) oriented Best Motor Response ([place]): (6) obeys commands Ennis Total: 15 Progress - PLAN OF CARE/RESULTS Progress/Plan/Lab Results: Orders Category Date Time Status Admit - [facility] Routine AdmDCTranf 11/04/16 01:42 Ordered FSBS/Accucheck Result AC + HS Care 11/04/16 01:42 Active Notify MD if DIRECTED Care 11/04/16 01:42 Active Nursing- MD Consult Request [id number] Care 11/04/16 01:42 Completed Saline Loc DIRECTED Care 11/04/16 01:42 Completed Saline Loc NOW Care 11/03/16 21:23 Completed Vital Signs Order Q 4-HR ASSESS Care 11/04/16 01:42 Completed Physician/Provider Consults Routine Cons 11/04/16 01:42 Ordered Physician/Provider Consults Stat Cons 11/04/16 01:42 Ordered Diabetic Diet Diet 11/04/16 23:09 Completed CHEST-2 VIEWS [RAD] Routine Exams 11/04/16 10:00 Completed CHEST-PORTABLE [RAD] Stat Exams 11/03/16 20:39 Completed BASIC METABOLIC PANEL [CHEM] Routine Lab 11/04/16 02:45 Completed CBC WITH ELECTRONIC DIFF [HEME] Stat Lab 11/03/16 19:44 Completed CK PROFILE [SP CHEM] Stat Lab 11/03/16 19:44 Completed COMPREHENSIVE METABOLIC PANEL [CHEM] Stat Lab 11/03/16 19:44 Completed D-DIMER [CHEM] Stat Lab 11/03/16 19:44 Completed FERRITIN Stat Lab 11/03/16 19:44 Completed FOLATE Stat Lab 11/03/16 19:44 Completed RETIC COUNT [HEME] Stat Lab 11/03/16 19:44 Completed TOTAL IRON [CHEM] Stat Lab 11/03/16 19:44 Completed TROPONIN T Q6H Lab 11/04/16 02:45 Completed TROPONIN T Q6H Lab 11/04/16 07:15 Completed TSH Stat Lab 11/03/16 19:44 Completed VITAMIN B12 Stat Lab 11/03/16 19:44 Completed 0.9% Sodium Chloride Inj [Ns] 90 ml Med 11/04/16 01:42 Discontinued Furosemide [Lasix] 100 mg IV 4 mg/hr Acetaminophen [Tylenol] Med 11/04/16 01:42 Discontinued 650 mg PO Q6H PRN PRN Albuterol 2.5MG/Ipratrop 0.5MG [Duoneb (A & A)] Med 11/04/16 01:42 Discontinued 3 ml INH Q6H PRN PRN Apixaban [Eliquis] Med 11/04/16 09:00 Discontinued 2.5 mg PO DAILY Furosemide [Lasix] Med 11/03/16 21:24 Discontinued 80 mg IV NOW ONE Insulin Lispro [Humalog] Med 11/04/16 01:42 Discontinued See Protocol SUBQ NOW ONE Metolazone [Zaroxolyn] Med 11/04/16 09:00 Discontinued 2.5 mg PO DAILY Nitroglycerin Med 11/04/16 01:42 Discontinued 0.5 inch TOP Q8H Omeprazole [Prilosec] Med 11/04/16 07:00 Discontinued 20 mg PO DAILY@0700 Ondansetron [Zofran] Med 11/04/16 01:42 Discontinued 4 mg IV Q4H PRN PRN Potassium Chloride E.r. [Klor-Con] Med 11/04/16 09:00 Discontinued 20 meq PO DAILY Spironolactone [Aldactone] Med 11/04/16 09:00 Discontinued 25 mg PO DAILY Aerosol Treatments Routine Oth 11/04/16 01:42 Completed Aerosol Treatments Stat Ot 11/04/16 01:42 Completed Oxygen Device Routine Ot 11/04/16 01:42 Completed Transfer/Admit Order [TRANSFER] Routine Transfer 11/03/16 23:08 Completed Result Diagrams: 11/03/16 19:44 11/06/16 04:40 - XRAY 1 XRAY: Right XRAY Study: Chest Impression: Abnormal XRAY Interpretation: Pleural effusion - CONSULTS/PCP/HOSPITALIST Notification #1 *Consult/PCP/Hospitalist*: Time Discussed: 21:26 Reason/Comments: Admit Consult Disposition: Admit (Admit Accepted) Departure - Departure Date of Disposition Decision: 11/03/16 Time of Disposition Decision: 23:00 DIAGNOSIS: CHF exacerbation Qualifiers: Congestive heart failure type: combined Qualified Code(s): I50.43 - Acute on chronic combined systolic (congestive) and diastolic (congestive) heart failure Disposition: ADMITTED INPATIENT 09 Certified Medical Emergency: Emergent Condition: Fair - Critical Care Note This patient required my direct & personal management of CC.: No Attestation - Physician/ ABIMBOLA Attestation Patient care was provided by Advanced Practice Provider:: No The physician spent face to face time with patient:: Yes Advanced Practice Provider documentation review:: Supervising physician onsite and consulted in the evaluation and care of this patient. The physician did have a face to face encounter with the patient. This chart was documented by the indicated scribe, (Guillermina Acevedo Scribe) and accurately reflects the services I performed and decisions made by , Tripp Aguilar MD, as attested by the provider's signature.
== END 2016-11-06 15:20 | disposition home or self-care (01) ==
LOC: ED 19:02 → SUATTDRO 23:21 → EDIPHOLD 23:21 → 3S 11-04 01:16
PROVIDERS: ADMIT Internal Medicine; ATTEND Internal Medicine